=== PATIENT | male | born 1955 | race Asian ===

== ENCOUNTER 2019-02-03 23:02 | Emergency (ER) | payer OTHER ==
[~2019-02-03] VITALS: Ht 180.3 cm; Wt 85.3 kg
[~2019-02-03 23:02] MED LIST: ACETAMINOPHEN-1 EAC3; ACETAMINOPHEN325 M1 PO; ASPIRIN EC81 M1 PO; BENICAR 5 MG5 M1 PO; CIALIS2.5 MG; HYDROCODON-ACE1 EAC7 PO; LEVAQUIN 500 M500 M3 PO; MULTIVITAMINS1 EAC7 PO; NORCO 5-325 TA1 EACH PO; PERCOCET 5-3251 EACH PO; PYRIDIUM100 MG PO; SUPRAX400 MG PO; TAMSULOSIN HCL0.4 M1 PO
[2019-02-03 23:55] LABS: ABSOLUTE NEUTROPHILS 1.5 thou/uL (1.4-8.2); BASOPHILS 0.7 % (0.0-2.0); EOSINOPHILS 1.7 % (0.0-3.0); HEMATOCRIT 39.1 % (42.0-52.0); LYMPHOCYTES 56.4 % (24.0-44.0); MCH 31.6 pg (26.0-34.0); MCHC 33.2 g/dL (28.0-37.0); MCV 95.2 fL (80.0-100.0); MONOCYTES 3.8 % (1.0-8.0); PLATELET COUNT 177 thou/uL (150-400); POLYS 37.4 % (36.0-66.0); RBC 4.11 mil/uL (4.50-6.00); RDW 14.1 % (10.5-14.5); WBC 4.1 thou/uL (4.0-11.0)
[2019-02-04 00:12] LABS: ANION GAP 7 mmol/L (7-16); BUN 20 mg/dL (7-18); CALCIUM 8.6 mg/dL (8.5-10.1); CHLORIDE 104 mmol/L (98-107); CO2 30 mmol/L (21-32); CREATININE 1.2 mg/dL (0.7-1.3); GLUCOSE 111 mg/dL (74-106); POTASSIUM 4.2 mmol/L (3.5-5.1); SODIUM 141 mmol/L (136-145)
[2019-02-04 00:16] LABS: ALBUMIN 3.6 g/dL (3.4-5.0); SGOT 12 U/L (15-37); SGPT 14 U/L (30-65); TOTAL BILIRUBIN 0.4 mg/dL (<0.1-1.0); TOTAL PROTEIN 7.3 g/dL (6.4-8.2); TROPONIN-I <0.06 ng/mL (<0.06)
[2019-02-04] MEDS ORDERED: BENICAR20 MG PO (00:24)
[2019-02-04 02:14] VITALS: BP 130/80
--- NOTE | 2019-02-04 14:11 | EKG ---
[place] [address] [facility] [place] [address] ELECTROCARDIOGRAM REPORT Name: MICHELE SALAZAR Room #: GURJIT Gordillo#: [id number] Admission: 02/03/19 Attend Phys: Discharge: 02/04/19 Date of : 51 Report #: [id number] THIS REPORT FOR: //name// [facility] ED Test Date: 2019-02-03 Test Time: 23:04:43 Pat Name: MICHELE SALAZAR Department: Room: Gender: M Nurse Transitional: SHELLY : 1955 Requested By: Darnell Mcghee Order Number: [id number] MD: Arsen Stratton Measurements Intervals [place] Rate: 67 P: 49 ND: 156 QRS: -49 QRSD: 103 T: 58 QT: 423 QTc: 447 Interpretive Statements Sinus rhythm Left anterior fascicular block Compared to ECG 08/07/2008 12:52:29 Left anterior fascicular block now present Electronically Signed On 02-04-2019 14:11:25 CDT by Arsen Stratton [email or web address] <ELECTRONICALLY SIGNED> By: Arsen Stratton MD 02/04/19 141 03 03 Arsen Stratton MD /EVA
== END 2019-02-04 03:40 | disposition home or self-care (01) ==
LOC: ER 23:02
PROVIDERS: Emergency Medicine
DX: R07.9 Chest pain, unspecified (principal); Z87.442 Personal history of urinary calculi; Z88.8 Allergy status to other drugs, medicaments and biological substances